=== PATIENT | female | born 1960 | race African-American/Black ===

== ENCOUNTER 2019-05-21 12:55 | Inpatient (IN) | payer SELFPAY ==
[2019-05-21] VITALS (17 sets, daily range): BP systolic 70–164; BP diastolic 48–108; PULSE 71–97; RESP 22–32; TEMP 34.9–36.8; O2SAT 80–100; BMI 28.0
--- NOTE | ~2019-05-21 | XR_ITS ---
EXAMINATION: XR tibia fibula RT 2V DATE: 05/21/2019 15:48 INDICATION: Right lower leg wounds. TECHNIQUE: 2 views of right tibia and fibula on 4 radiographs were obtained. COMPARISON: None. FINDINGS: Bone alignment is normal. No fracture. There is periosteal reaction of fibular diaphysis an d distal tibial diaphysis and metaphysis. There are erosions of medial malleolus. There is mild trico mpartmental osteoarthritis of the knee. No knee joint effusion. The skin of the lower leg and foot de monstrates an undulating surface. IMPRESSION: 1. Erosions of medial malleolus, consistent with osteomyelitis. 2. Periosteal reaction of fibular diaphysis and distal tibial diaphysis and metaphysis, most likely s econdary to venous stasis. Reviewed, dictated and finalized at location A. IMPRESSION: 1. Erosions of medial malleolus, consistent with osteomyelitis. 2. Periosteal reaction of fibular diaphysis and distal tibial diaphysis and met aphysis, most likely secondary to venous stasis.
--- NOTE | ~2019-05-21 | XR_ITS ---
EXAMINATION: XR chest ET placement DATE: 05/21/2019 15:48 INDICATION: Intubation. TECHNIQUE: A single frontal view of the chest was obtained. COMPARISON: Chest single view 09/25/2017 FINDINGS: There is mild atelectasis at the lung bases. No pleural effusion or pneumothorax. The heart size is normal. The endotracheal tube tip is 5.1 cm above the anthony. IMPRESSION: 1. Mild atelectasis at the lung bases. Reviewed, dictated and finalized at location A.
--- NOTE | ~2019-05-21 | XR_ITS ---
EXAMINATION: XR abdomen NG/feed tube insert DATE: 05/21/2019 18:20 INDICATION: Orogastric tube placement. TECHNIQUE: A semiupright view of the abdomen was obtained. COMPARISON: None. FINDINGS: The lower abdomen is excluded. There are no dilated loops of bowel. A central venous cathet er tip overlies the inferior vena cava. The nasogastric tube tip is in the distal stomach. IMPRESSION: 1. Nasogastric tube tip in the distal stomach. Reviewed, dictated and finalized at location A.
--- NOTE | ~2019-05-21 | US_ITS ---
EXAMINATION: US renal BI DATE: 05/22/2019 10:13 INDICATION: Renal failure TECHNIQUE: Multiple ultrasound grayscale images of the kidneys were obtained. COMPARISON: None. FINDINGS: The right kidney measures 9.3 x 3.6 x 5.3 cm. The left kidney measures 6.3 x 4.0 x 4.5 cm. Which may be underestimated due to poor visualization with rib shadowing. The kidneys demonstrate normal echoge nicity. There is no hydronephrosis in either kidney. No stones identified. The bladder is unremarkab le. Perihepatic ascites. IMPRESSION: 1. No hydronephrosis. 2. Left kidney appears small but with normal cortical thickness and this may be artifactual due to ri b shadowing limiting visualization. 3. Perihepatic ascites. Reviewed, dictated and finalized at location A. IMPRESSION: 1. No hydronephrosis. 2. Left kidney appears small but with normal cortical thickness and this may be artifactual due to rib shadowing limiting visualization. 3. Perihepatic ascites.
--- NOTE | ~2019-05-21 | XR_ITS ---
EXAMINATION: XR chest 1V portable DATE: 05/22/2019 05:40 INDICATION: Intubated TECHNIQUE: frontal view of the chest was obtained. COMPARISON: Chest radiograph dated 05/21/2019 FINDINGS: Endotracheal tube tip 5.1 cm above the anthony. Nasogastric tube extends below the left hemidiaphragm with distal tip collimated off the study. Lung volumes are decreased. Mild opacities at the bilateral lung bases and favor atelectasis over uln ar edema or pneumonia. The cardiomediastinal silhouette is normal. IMPRESSION: 1. Decreased lung volumes with persistent atelectasis at the lung bases. Reviewed, dictated and finalized at location A.
--- NOTE | ~2019-05-21 | XR_ITS ---
EXAMINATION: XR tibia fibula LT 2V DATE: 05/21/2019 15:48 INDICATION: Left lower leg wound. TECHNIQUE: 2 views of left tibia and fibula on 4 radiographs were obtained. COMPARISON: None. FINDINGS: Bone alignment is normal. There is a fracture deformity of medial malleolus. There is perio steal reaction of fibular diaphysis and proximal and distal tibial metaphyses. There is mild tricompa rtmental osteoarthritis of left knee. No knee joint effusion. The skin demonstrates a diffusely undul ating surface. IMPRESSION: 1. Periosteal reaction of fibular diaphysis and proximal and distal tibial metaphyses, most likely se condary to venous stasis. Osteomyelitis cannot be excluded. 2. Age-indeterminant fracture deformity of medial malleolus. Reviewed, dictated and finalized at location A. IMPRESSION: 1. Periosteal reaction of fibular diaphysis and proximal and distal tibial meta physes, most likely secondary to venous stasis. Osteomyelitis cannot be exclude d. 2. Age-indeterminant fracture deformity of medial malleolus.
--- NOTE | ~2019-05-21 | XR_ITS ---
EXAMINATION: XR chest ET placement DATE: 05/23/2019 08:46 INDICATION: Endotracheal tube position TECHNIQUE: frontal view of the chest was obtained. COMPARISON: Chest radiograph dated 05/23/2019 FINDINGS: Endotracheal tube tip 4.5 cm above the anthony. Persistent hazy airspace opacities in the right mid to lower and left lower lung zones with blunting at the costophrenic angles. No pulmonary edema or pneu mothorax. The cardiomediastinal silhouette is normal. Visualized bones and soft tissues are unremarka ble. IMPRESSION: 1. Endotracheal tube unchanged with tip 4.5 cm above the anthony. 2. Small bilateral pleural effusions, right greater than left, with mild basilar atelectasis. Reviewed, dictated and finalized at location A. IMPRESSION: 1. Endotracheal tube unchanged with tip 4.5 cm above the anthony. 2. Small bilateral pleural effusions, right greater than left, with mild basila r atelectasis.
--- NOTE | ~2019-05-21 | XR_ITS ---
EXAMINATION: XR chest 1V portable DATE: 05/23/2019 05:22 INDICATION: Acute respiratory failure TECHNIQUE: frontal view of the chest was obtained. COMPARISON: Chest radiograph dated 05/22/2019 FINDINGS: Endotracheal tube tip 4.6 cm above the anthony. New hazy opacities at the lung bases with blunting at the costophrenic angles consistent with small bilateral pleural effusions and associated atelectasis. No pulmonary edema or pneumothorax. The cardiomediastinal silhouette is normal. Visualized bones and soft tissues are unremarkable. IMPRESSION: 1. Small bilateral pleural effusions with mild bibasilar atelectasis. Reviewed, dictated and finalized at location A.
--- NOTE | 2019-05-21 12:55 | ED.AMS ---
HPI - Altered Mental Status General Chief Complaint: Altered Mental Status Stated Complaint: . Time Seen by Provider: 05/21/19 12:56 Source: EMS Mode of arrival: EMS Limitations: altered mental status History of Present Illness HPI narrative: The pt is a 58 y/o female who presents to the ED, via EMS, c/o decreased responsiveness onset couple of days ago. Per EMS, pt has become less and less responsive, and her chronic BLE swelling has worsened. EMS states that they were unable to arouse the patient, and she had saturation in the 40s. Pt was placed on CPAP as a result. Blood sugar was 70 on fingerstick by EMS. The HPI is limited due to the pt's AMS. Spoke with patient's in the waiting room after initial evaluation. Patient has chronic bilateral lower extremity wounds that have been present for years. Patient has previously been admitted to the hospital for these wounds. states patient is not diabetic. He is unable to articulate her past medical history. He states she fell this morning and cannot relate to me how long she has been ill. He does report that she had gotten up to the bathroom this morning. MD complaint: decreased responsiveness Onset (ago): day(s) (A couple) Consistency of symptoms: getting Worse Associated symptoms: other (Unobtainable) Treatments prior to arrival: other (CPAP) Related Data Allergies Allergy/AdvReac Type Severity Reaction Status Date / Time No Known Allergies Allergy Unverified 09/25/17 21:06 Review of Systems Review of Systems: ROS unobtainable: Yes unobtainable due to mental status [facility] Surgical History Surgical History (Updated 05/21/19 @ 13:14 by Alfredo Leon) Surgical history unknown Family History Family History (Updated 11/05/17 @ 13:22 by DOCTOR UNKNOWN) Mother Patient's mother is in good health Father Patient's father is in good health Social History Social History (Updated 05/21/19 @ 13:15 by Alfredo Leon) Living arrangements: with family Comments PMHx is limited due to the pt's AMS. No PMHx found on review of old records either. Exam Const: General: confusion and ill appearing acutely Limitations: altered mental status HENMT: Head: other (CPAP present) Mouth: Yes dry mucous membranes Teeth and gingiva: poor dentition Eyes: Pupils: Fixed pupils bilaterally and Pupils not reactive bilaterally Resp: Effort & Inspection: tachypneic Auscultation: clear to auscultation bilaterally Cardio: Rate: regular rate Rhythm: regular rhythm GI: GI Palp: Yes Soft to palpation and No Tenderness to palpation present (GI) Auscultation: normal bowel sounds Skin: Wounds: wounds noted ulceration right lower leg size (Extensive, multiple), drainage and malodorous, ulceration left lower leg size (Extensive, multiple), drainage and malodorous Neuro: General: moves all extremities, confusion and other (Poorly responsive to any stimuli) Extrem: General: other (Bilateral lower leg swelling) Course Course Emergency Course: Patient presents to the emergency department with altered mental status and infected bilateral lower extremity ulcers with foul smelling discharge present. Blood gas shows patient is not hypoxic, but has severe metabolic acidosis. Advised patient's based on findings of such severe acidosis that she likely has severe septic shock from her lower extremity ulcers. This is confirmed on test results after further evaluation was able to be obtained after placement of central line and patient intubation. Nursing staff were not able to draw blood, thus blood work was obtained after placement of central line. Patient aggressively resuscitated with multiple liters of IV fluids. Hypoglycemia treated with amp of D50 and placement on a D5 LR drip. Patient given 2 A of bicarb both for treatment of her hyperkalemia as well as severe acidemia. Patient will be placed on bicarb drip as well. Patient cultured and started on broad-spectrum
[2019-05-21 13:22] LABS: Base Excess ABG -31.4 mEq/l (+/-2.0); Carboxyhemoglobin 0.3 % THb (0-2.0); Fractional Inspired Oxygen 100 %; HCO3 ABG 4.4 mEq/l (22.0-26.0); Methemoglobin ABG 0.5 %THb (0-1.5); Oxygen Content ABG 17.8 %vol (16.0-22.0); Oxygen Saturation ABG 98.9 % (95.0-100.0); Oxyhemoglobin 97.8 % THb (90.0-100.0); PCO2 ABG 35.4 mmHg (35.0-45.0); PO2 ABG 285.6 mmHg (80.0-100.0); PO2 FiO2 Ratio Arterial Blood 2.86 %; Reduced Hemoglobin 1.4 %THb (0-5.0); Total Hemoglobin 12.4 g/dL (12.0-18.0)
[2019-05-21 13:23] LABS: pH ABG 6.708 (7.350-7.450)
[2019-05-21 13:24] LABS: Device OTHER DEVICE; Site Drawn RIGHT BRACHIAL
[2019-05-21] MEDS: RAPID SEQUENCE INTUBATION KIT 1 EACH (14:29)
--- NOTE | 2019-05-21 14:40 | PC.NURSE ---
Addendum entered by Rosalie Waterman RN 05/21/19 20:03: GREGORY NARANJO Original Note: AT 1440 LEVOPHED INITIATED AT 10MCG/MIN
[2019-05-21 14:52] LABS: Hematocrit 30.4 % (37.0-47.0); Hemoglobin 8.5 g/dL (12.0-15.0); Mean Corpuscular Hemoglobin 26.6 pg (26-34); Mean Corpuscular Volume 95.3 fl (80-100); Mean Platelet Volume 9.4 fl (7.4-10.4); Platelet Count Result 428 k/mm3 (150-375); Red Blood Count 3.19 M/mm3 (4.2-5.4); Red Cell Distribution Width 14.1 % (11.5-14.5); White Blood Count 31.1 K/mm3 (4.5-10.0)
[2019-05-21 15:06] LABS: Prothrombin Time 22.3 Seconds (11.1-14.7)
[2019-05-21 15:07] LABS: Band Neutrophils Percent 24 % (0-6); Eosinophils Absolute Manual 0.31 K/mm3 (0.02-0.5); Eosinophils Percent Manual 1 % (0-4); Lymphocytes Absolute Manual 11.81 K/mm3 (1.1-4.5); Metamyelocytes Percent 1 %; Monocytes Absolute Manual 1.24 K/mm3 (0.1-0.90); Monocytes Percent Manual 4 % (3-9); Neutrophils Absolute Manual 17.41 K/mm3 (1.7-7.2); Neutrophils Percent Manual 32 % (46-73); Nucleated Red Blood Cells 1 %; Total Cells Counted 100
[2019-05-21 15:08] LABS: Platelet Estimate Increased (Adequate)
[2019-05-21 15:09] LABS: Anisocytosis 1+ (NORMAL); Hypochromasia 1+ (NORMAL)
[2019-05-21 15:15] LABS: Alanine Aminotransferase 152 U/L (4-35); Albumin Level 2.6 g/dL (3.5-5.1); Alkaline Phosphatase 223 U/L (38-126); Aspartate Amino Transferase 420 U/L (14-36); Bilirubin,Total 0.7 mg/dL (0.2-1.3); Blood Urea Nitrogen 61 mg/dL (7-17); Calcium 8.2 mg/dL (8.4-10.2); Carbon Dioxide 7 mmol/L (22-30); Chloride 100 mmol/L (98-107); Creatine Kinase 520 U/L (30-135); Estimated Glomerular Filt Rate 10; Glucose < 30 mg/dL (65-105); Magnesium 3.8 mg/dL (1.6-2.3); Potassium 7.1 mmol/L (3.4-5.0); Sodium 131 mmol/L (137-145)
[2019-05-21 15:19] LABS: CRP 24.7 mg/dL (<1.0); NT Pro B Type Natriuretic Pept 13100 PG/ML (5-100); Troponin I 0.081 ng/mL (0.000-0.034)
[2019-05-21] MEDS: DEXTROSE 50% 25 GM/50 ML SYRINGE IV PUSH ×2 (15:20→17:25)
[2019-05-21 15:27] LABS: Lactic Acid Reflex 12.8 mmol/L (0.7-2.1)
[2019-05-21] MEDS: SODIUM CHLORIDE 0.9% IV 1,000 ML 999 ML ×2 (15:30→16:00)
--- NOTE | 2019-05-21 15:30 | PC.NURSE ---
AT 1530 2MG MIDAZOLAM AND 50MCG FENTANYL GIVEN IVP PER GREGORY NARANJO
[2019-05-21] MEDS: SODIUM BICARBONATE 8.4% 50 MEQ/50 ML VIAL IV PUSH ×2 (15:40)
--- NOTE | 2019-05-21 15:45 | PC.NURSE ---
AT 1545 LEVOPHED INCREASED TO 20MCG/MIN
[2019-05-21] MEDS: PROPOFOL IV EMULSION 100 ML 1.9 MG IV CONT (15:54)
[2019-05-21] MEDS: SODIUM BICARBONATE 8.4% 150 MEQ in WATER, STERILE FOR INJECTION 950 ML 50 MEQ IV CONT (16:12)
[2019-05-21] MEDS: INSULIN HUMAN REGULAR (*BKC) 100 UNITS/ML 10 UNITS IV PUSH (16:17)
[2019-05-21] MEDS: CALCIUM CHLORIDE 1,000 MG/10 ML SYRINGE 1000 MG IV PUSH (16:21)
[2019-05-21] MEDS: NOREPINEPHRINE 8 MG/D5W 250 ML 8 MG/250 ML BAG 37.5 MG IV CONT (17:00)
[2019-05-21 17:50] LABS: Reflex Lactic Acid Yes or No Add Lactic
[2019-05-21] MEDS: SODIUM CHLORIDE 0.9% IV 1,000 ML 999 ML IV CONT (18:00)
[2019-05-21] MEDS: DEXTROSE 5%/LACTATED RINGERS 1,000 ML 200 ML IV CONT ×2 (18:00→22:46)
[2019-05-21 18:25] LABS: Glucose Point of Care 125 (65-105)
[2019-05-21 18:25] LABS: Glucose Point of Care 33 (65-105)
[2019-05-21 18:25] LABS: Glucose Point of Care 89 (65-105)
[2019-05-21 18:33] LABS: Add Urine Microscopic? YES; Amorphous Sediment Urine Few; Appearance Urine Cloudy (Clear); Bacteria Urine Trace /hpf; Bilirubin Urine Negative (Negative); Blood Urine 3+ (Negative); Color Urine Yellow (Yellow); Glucose Urine UA 1+ mg/dL (Negative); Ketones Urine Negative (Negative); Leukocyte Esterase Ur Negative LEU/UL (Negative); Mucus Urine Rare /lpf; Nitrate Urine Negative (Negative); Protein Urine 2+ mg/dL (Negative); Specific Grav Ur 1.012 (1.001-1.035); Squamous Epithelial Cell Urine Many /hpf (Few); Urobilinogen Urine Negative mg/dL (<2.0); WBC Urine 0-3 /hpf
[2019-05-21 18:36] LABS: Troponin I 0.117 ng/mL (0.000-0.034)
[2019-05-21] MEDS: VASOPRESSIN INJ 100 UNITS in DEXTROSE 5% 95 ML IV CONT (18:40)
[2019-05-21 18:50] LABS: Lactic Acid 8.5 mmol/L (0.7-2.1)
--- NOTE | 2019-05-21 18:57 | PM.IMHP ---
H&P: HPI History of Present Illness Chief complaint: Septic shock/blateral lower extremity ulcers/hyper Narrative: Wanda Haines is a 58 year old female who has a long history of having chronic lower extremity ulcers. The last time the patient was here was September 25, 2017 she was here with septic shock due to her lower extremity chronic wounds. At that time the patient was transferred to [facility]. For necrotizing fasciitis at that time. Patient currently has foul-smelling drainage from both of her legs. She has her legs wrapped and she has yellow drainage from those wounds. I was not able to see the extent of her wounds comes because they are wrapped at this time. Her white count is 31.3. She was started on vancomycin and Zosyn. A central line was placed to the right femoral area in the emergency room. The patient was started on Levophed and vasopressin. Patient's pH was 6.708 and her PO2 was 285.6. Patient was intubated in the emergency room and placed on a ventilator. Her blood sugar was less than 30. Lactic was 8.5. Troponin 0.117. CRP 24.7. BNP 13,100. Patient's potassium was 7.1. Patient was given and sodium bicarb, calcium gluconate, IV insulin x1. The apparel stock checker was notified and agreed to allow the patient to come into ICU. She has severe sepsis. Date of service 05/21/2019 Review of Systems Review of Systems: ROS unobtainable: Yes unobtainable due to endotracheal tube and unobtainable due to medical condition Constitutional: Constitutional: Reports as per HPI and Reports no additional constitutional complaints Eyes: Eyes: Reports as per HPI and Reports no additional eye complaints ENT: Reports system reviewed and no additional complaints, except as documented and Reports Normal hearing present Cardiovascular: Cardiovascular: Reports no additional cardiovascular complaints Respiratory: Respiratory: Reports no additional respiratory complaints and Reports no additional respiratory complaints Gastrointestinal: Gastrointestinal: Reports as per HPI and Reports no additional gastrointestinal complaints Musculoskeletal: Musculoskeletal: Reports no additional musculoskeletal complaints Integumentary/Breasts: Skin/Breast: Reports system reviewed and no additional complaints, except as docu and Reports as per HPI Neurologic: Reports system reviewed and no additional complaints, except as documented, Reports as per HPI and Reports Normal hearing present Psychiatric: Psychiatric: Reports no additional psychiatric complaints and Reports as per HPI Endocrine: Endocrine: Reports no additional endocrine complaints Hematologic/Lymphatic: Hematologic/Lymphatic: Reports no additional hematologic/lymphatic complaints Allergic/Immunologic: Allergic/Immunologic: Reports no additional allergic/immunologic complaints [facility] Past Medical History Medical History Chronic ulcer of leg Surgical History Surgical History Surgical history unknown Family History Family History Mother Patient's mother is in good health Father Patient's father is in good health Social History Social History (Updated 05/21/19 @ 13:15 by Alfredo Leon) Living arrangements: with family Meds Home Medications and Allergies Home Medications Medication Instructions Recorded Confirmed Type Unable to Obtain Home Medications 05/21/19 05/21/19 History Allergies Allergy/AdvReac Type Severity Reaction Status Date / Time No Known Allergies Allergy Unverified 09/25/17 21:06 Vital Signs Vital Signs - 24 hr 05/21/19 12:52 05/21/19 13:25 05/21/19 13:37 Temperature 36.8 C Pulse Rate 71 93 97 Respiratory Rate 32 H 26 H 30 H Blood Pressure 125/60 103/87 77/50 L Pulse Oximetry 80 L 89 L 90 05/21/19 14:30 05/21/19 14:45 05/21/19 15:00 Temper
--- NOTE | 2019-05-21 20:25 | ADMGEN ---
This patient, Wanda Haines, was admitted to Intensive Care Unit-2. Patient unable to be oriented to hospital policies and general routines due to sedation. Patient arrived intubated and sedated on Propofol gtt, Levophed gtt, rodriguez and bilateral lower legs dressings. no family to bedside per current protocol. Bedside report received. Point of care blood sugar taken, OG inserted, neurological assessment completed. Patient able to follow simple commands. ICU MD notified of blood glucose level and current fluids running. Bilateral lower leg dressings changed at change of shift with upcoming [facility]. Wound photos done.
[2019-05-21 21:00] LABS: Alveolar/Arterial O2 Gradient 48.5 mmHg; Carboxyhemoglobin 0.2 % THb (0-2.0); Fractional Inspired Oxygen 40 %; HCO3 ABG 9.6 mEq/l (22.0-26.0); Methemoglobin ABG 0.4 %THb (0-1.5); Oxygen Content ABG 14.1 %vol (16.0-22.0); Oxygen Saturation ABG 99.4 % (95.0-100.0); Oxyhemoglobin 97.8 % THb (90.0-100.0); PO2 ABG 213.9 mmHg (80.0-100.0); PO2 FiO2 Ratio Arterial Blood 5.35 %; Reduced Hemoglobin 1.6 %THb (0-5.0); Total Hemoglobin 9.9 g/dL (12.0-18.0); pH ABG 7.302 (7.350-7.450)
[2019-05-21 21:02] LABS: Device VENTILATOR; Modified Allen's Test Pass; PCO2 ABG 19.8 mmHg (35.0-45.0); Site Drawn LEFT RADIAL
[2019-05-21 21:03] LABS: Arterial Blood Gas PEEP 5 cmH2O; Arterial Blood Gas Tidal Volume 400 ml; Arterial Blood Gas Vent Mode CMV; Arterial Blood Gas Ventilator rate 14 /MIN
[2019-05-21 21:18] LABS: Glucose Point of Care 124 (65-105)
[2019-05-21 21:18] LABS: Glucose Point of Care 105 (65-105)
[2019-05-21 21:26] LABS: Albumin Level 1.6 g/dL (3.5-5.1); Alkaline Phosphatase 161 U/L (38-126); Bilirubin,Total 0.7 mg/dL (0.2-1.3); Blood Urea Nitrogen 56 mg/dL (7-17); Calcium 6.5 mg/dL (8.4-10.2); Carbon Dioxide 13 mmol/L (22-30); Chloride 104 mmol/L (98-107); Estimated CRCL calculation 10 ml/min; Estimated Glomerular Filt Rate 14; Glucose 176 mg/dL (65-105); Potassium 4.1 mmol/L (3.4-5.0); Sodium 129 mmol/L (137-145)
[2019-05-21 21:28] LABS: Lactic Acid Reflex 6.7 mmol/L (0.7-2.1)
[2019-05-21 21:32] LABS: Alanine Aminotransferase 1163 U/L (4-35)
[2019-05-21 21:37] LABS: Troponin I 0.185 ng/mL (0.000-0.034)
[2019-05-21 21:50] LABS: Aspartate Amino Transferase 5045 U/L (14-36)
[2019-05-21 22:19] LABS: Glucose Point of Care 113 (65-105)
[2019-05-21] MEDS: NOREPINEPHRINE 8 MG/D5W 250 ML 8 MG/250 ML BAG 56.3 MG IV CONT (22:45)
[2019-05-21 23:27] LABS: Glucose Point of Care 123 (65-105)
[2019-05-22] VITALS (24 sets, daily range): BP systolic 95–143; BP diastolic 54–89; PULSE 92–140; RESP 20–30; TEMP 36.1–37.2; O2SAT 91–100
[2019-05-22 01:48] LABS: Glucose Point of Care 130 (65-105)
[2019-05-22] MEDS: NOREPINEPHRINE 8 MG/D5W 250 ML 8 MG/250 ML BAG 56.3 MG IV CONT ×2 (03:40→07:47)
[2019-05-22] MEDS: SODIUM BICARBONATE 8.4% 150 MEQ in WATER, STERILE FOR INJECTION 950 ML 100 MEQ IV CONT (03:40)
[2019-05-22 03:46] LABS: Glucose Point of Care 99 (65-105)
[2019-05-22] MEDS: DEXTROSE 5%/LACTATED RINGERS 1,000 ML 200 ML IV CONT (04:33)
[2019-05-22 05:04] LABS: Glucose Point of Care 80 (65-105)
[2019-05-22 05:26] LABS: Alveolar/Arterial O2 Gradient 147.3 mmHg; Base Excess ABG -7.2 mEq/l (+/-2.0); Fractional Inspired Oxygen 40 %; HCO3 ABG 14.4 mEq/l (22.0-26.0); Oxygen Content ABG 15.5 %vol (16.0-22.0); Oxygen Saturation ABG 98.6 % (95.0-100.0); PO2 ABG 115.2 mmHg (80.0-100.0); PO2 FiO2 Ratio Arterial Blood 2.88 %; Total Hemoglobin 11.2 g/dL (12.0-18.0); pH ABG 7.481 (7.350-7.450)
[2019-05-22 05:29] LABS: Device VENTILATOR; Modified Allen's Test Pass; PCO2 ABG 19.7 mmHg (35.0-45.0); Site Drawn LEFT FEMORAL
[2019-05-22 05:30] LABS: Arterial Blood Gas PEEP 5 cmH2O; Arterial Blood Gas Vent Mode CMV; Arterial Blood Gas Ventilator rate 14 /MIN
[2019-05-22 05:31] LABS: Arterial Blood Gas Tidal Volume 400 ml
[2019-05-22 06:10] LABS: Hematocrit 31.1 % (37.0-47.0); Hemoglobin 10.3 g/dL (12.0-15.0); Mean Corpuscular HGB Conc 33.1 g/dl (32-36); Mean Corpuscular Volume 81.4 fl (80-100); Mean Platelet Volume 9.1 fl (7.4-10.4); Platelet Count Result 282 k/mm3 (150-375); Red Blood Count 3.82 M/mm3 (4.2-5.4); Red Cell Distribution Width 13.7 % (11.5-14.5); White Blood Count 30.2 K/mm3 (4.5-10.0)
[2019-05-22 06:35] LABS: Lactic Acid 4.4 mmol/L (0.7-2.1)
[2019-05-22 06:36] LABS: Band Neutrophils Percent 13 % (0-6); Lymphocytes Absolute Manual 2.11 K/mm3 (1.1-4.5); Metamyelocytes Percent 1 %; Monocytes Absolute Manual 2.41 K/mm3 (0.1-0.90); Monocytes Percent Manual 8 % (3-9); Neutrophils Absolute Manual 25.36 K/mm3 (1.7-7.2); Neutrophils Percent Manual 71 % (46-73); Total Cells Counted 100
[2019-05-22 06:36] LABS: Albumin Level 1.8 g/dL (3.5-5.1); Alkaline Phosphatase 228 U/L (38-126); Bilirubin,Total 1.1 mg/dL (0.2-1.3); Blood Urea Nitrogen 57 mg/dL (7-17); Calcium 5.8 mg/dL (8.4-10.2); Carbon Dioxide 16 mmol/L (22-30); Chloride 96 mmol/L (98-107); Estimated CRCL calculation 13 ml/min; Estimated Glomerular Filt Rate 15; Glucose 129 mg/dL (65-105); Magnesium 1.9 mg/dL (1.6-2.3); Phosphorus 6.1 mg/dL (2.5-4.5); Potassium 4.4 mmol/L (3.4-5.0); Sodium 126 mmol/L (137-145)
[2019-05-22 06:39] LABS: Anisocytosis 1+ (NORMAL); Burr Cells 1+ (NORMAL); Platelet Estimate Adequate (Adequate)
[2019-05-22 07:09] LABS: Alanine Aminotransferase 1570 U/L (4-35)
[2019-05-22 07:32] LABS: Aspartate Amino Transferase 5169 U/L (14-36)
[2019-05-22] MEDS: PANTOPRAZOLE SODIUM IV 40 MG VIAL IV PUSH (08:01)
[2019-05-22] MEDS: HYDROCORTISONE SODIUM SUCCINATE 100 MG/2 ML VIAL IV PUSH ×3 (08:01→22:10)
--- NOTE | 2019-05-22 08:03 | ECG_ITS ---
Measurements Intervals [place] Rate: 105 P: -27 OR: 132 QRS: 36 QRSD: 71 T: 70 QT: 364 QTc: 482 Interpretive Statements SINUS OR ECTOPIC ATRIAL TACHYCARDIA RSR' IN V1 OR V2, CONSIDER RIGHT VENTRICULAR HYPERTROPHY OR RIGHT VCD BORDERLINE ST-T WAVE ABNORMALITY- LATERAL LEADS BASELINE WANDER- I, III, V1-V6 ABNORMAL ECG Electronically Signed On 05-22-2019 8:30:14 CDT by Juan Benites D.O.
[2019-05-22] MEDS: SODIUM BICARBONATE 8.4% 150 MEQ in DEXTROSE 5% 1,000 ML 950 ML 100 MEQ IV CONT (08:08)
[2019-05-22] MEDS: CALCIUM GLUC 2,000 MG/NS 100ML 2,000 MG/100 ML BAG 100 MG IVPB (08:26)
[2019-05-22] MEDS: DEXTROSE 50% 25 GM/50 ML SYRINGE IV PUSH (08:45)
[2019-05-22 08:52] LABS: Glucose Point of Care 47 (65-105)
--- NOTE | 2019-05-22 09:03 | WPDCNINT ---
Assessment and Plan Assessment and plan (1) Septic shock: Code(s): A41.9 - Sepsis, unspecified organism; R65.21 - Severe sepsis with septic shock Status: Acute Assessment and Plan: septic shock most likely related to infected chronic wound, possible bacteremia - patient on vasopressin and Levophed, will target mean arterial pressures > 70 mmHg for adequate end organ perfusion - will start stress dose steroids - continue vancomycin and Zosyn - blood and wound cultures have been obtained and pending - lactic acid trending down - patient with severe metabolic acidosis, on bicarb infusion - I will place an arterial line (2) Encephalopathy: Code(s): G93.40 - Encephalopathy, unspecified Status: Acute Assessment and Plan: multifactorial, toxic metabolic encephalopathy related to severe metabolic acidosis due to septic shock, acute kidney injury, shock liver - ammonia levels within normal limits - will obtain CT scan of the head when the patient is a little more stable - continue treating underlying causes (3) Acute respiratory failure: Code(s): J96.00 - Acute respiratory failure, unspecified whether with hypoxia or hypercapnia Status: Acute Assessment and Plan: most likely related to metabolic acidosis, initial pH was 6.7 - patient on full mechanical ventilatory support, 40% FiO2 - chest x-ray and ABGs reviewed, will adjust tidal volumes to protect patient from volu-trauma - will add bronchodilators - continue antibiotics as above (4) Acute renal failure: Code(s): N17.9 - Acute kidney failure, unspecified Status: Acute Assessment and Plan: acute kidney injury most likely related to septic shock - adequately fluid-resuscitated - continue maintenance IV fluids with sodium bicarb in D5 - will maintain mean arterial pressure > 70 mmHg for adequate renal perfusion - awake nephrotoxic medications - creatinine trending down, adequate urine output. Will continue to monitor electrolytes, renal function and urine output (5) Hyperkalemia: Code(s): E87.5 - Hyperkalemia Status: Acute Assessment and Plan: Resolved, hyperkalemia could be related to acute kidney injury, severe metabolic acidosis (6) Hypoglycemia: Code(s): E16.2 - Hypoglycemia, unspecified Status: Acute Assessment and Plan: likely related to severe septic shock, metabolic acidosis - Accu-Cheks with hypoglycemia protocol (7) Chronic ulcer of leg: Code(s): L97.909 - Non-pressure chronic ulcer of unspecified part of unspecified lower leg with unspecified severity Status: Chronic Assessment and Plan: patient has a history of chronic leg ulcers. According the records and her significant other she has been having these ulcers for the last 3-4 years - was in [facility] in September 2017 possible necrotizing fasciitis, will obtain medical records from [facility] (8) Elevated troponin: Code(s): R79.89 - Other specified abnormal findings of blood chemistry Status: Acute Assessment and Plan: elevated troponin likely related to septic shock and ischemic demand. Likely type 2 infarct - no ST-T changes on the EKG (9) Elevated LFTs: Code(s): R79.89 - Other specified abnormal findings of blood chemistry Status: Acute Assessment and Plan: likely related to shock liver, will maintain higher mean arterial pressures for adequate end organ perfusion (10) DVT prophylaxis: Code(s): Z29.9 - Encounter for prophylactic measures, unspecified Status: Acute Assessment and Plan: DVT prophylaxis: Lovenox. Stress ulcer prophylaxis: Protonix Additional Plan will update family on the phone code status: Full code Critical care time spent: 49 minutes Due to a high probability of clinically significant, life threatening deterioration, the patient required
[2019-05-22 09:38] LABS: Glucose Point of Care 60 (65-105)
[2019-05-22] MEDS: MIDAZOLAM HCL 50 MG in DEXTROSE 5% 90 ML IV CONT (10:03)
[2019-05-22] MEDS: DEXTROSE 10% 1,000 ML 30 ML IV CONT (10:10)
[2019-05-22] MEDS: ENOXAPARIN 30 MG/0.3 ML SYRINGE SUB-Q (10:34)
[2019-05-22 10:59] LABS: Glucose Point of Care 25 (65-105)
[2019-05-22 10:59] LABS: Glucose Point of Care < 20 (65-105)
[2019-05-22 11:03] LABS: Amphetamine Screen Urine Negative (Negative); Barbiturate Screen Urine Negative (Negative); Benzodiazepines Screen Urine Positive (Negative); Cannabinoid Screen Urine Negative (Negative); Cocaine Screen Urine Negative (Negative); Methadone Screen Urine Negative (Negative); Opiate Screen Urine Negative (Negative); Phencyclidine Screen Urine Negative (Negative)
[2019-05-22 11:04] LABS: Glucose Point of Care 108 (65-105)
[2019-05-22 12:10] LABS: Alveolar/Arterial O2 Gradient 157.2 mmHg; Base Excess ABG -7.2 mEq/l (+/-2.0); Fractional Inspired Oxygen 60 %; HCO3 ABG 14.9 mEq/l (22.0-26.0); Oxygen Content ABG 15.3 %vol (16.0-22.0); Oxygen Saturation ABG 99.6 % (95.0-100.0); Oxyhemoglobin 97.9 % THb (90.0-100.0); PO2 ABG 247.3 mmHg (80.0-100.0); PO2 FiO2 Ratio Arterial Blood 4.12 %; Total Hemoglobin 10.7 g/dL (12.0-18.0); pH ABG 7.464 (7.350-7.450)
[2019-05-22 12:12] LABS: Device VENTILATOR; PCO2 ABG 21.2 mmHg (35.0-45.0); Site Drawn ARTLINE
[2019-05-22 12:13] LABS: Arterial Blood Gas Minute Volume 0 LPM; Arterial Blood Gas PEEP 5 cmH2O; Arterial Blood Gas Pressure Support 0 cmH2O; Arterial Blood Gas Tidal Volume 330 ml; Arterial Blood Gas Vent Mode CMV; Arterial Blood Gas Ventilator rate 14 /MIN; Peak Inspiratory Pressure 0 cmH2O
[2019-05-22 12:35] LABS: Lactic Acid Reflex 4.4 mmol/L (0.7-2.1)
[2019-05-22] MEDS: SOD HYPOCHLORITE 1/4 STRENGTH 473 ML 1 APPLIC TOPICAL ×2 (13:21→20:06)
[2019-05-22] MEDS: NOREPINEPHRINE 8 MG/D5W 250 ML 8 MG/250 ML BAG 30 MG IV CONT (13:32)
--- NOTE | 2019-05-22 13:42 | PM.CNGS ---
Assessment and Plan Assessment and plan (1) Infected stasis ulcer of lower extremity: Code(s): I83.209 - Varicose veins of unspecified lower extremity with both ulcer of unspecified site and inflammation; L97.909 - Non-pressure chronic ulcer of unspecified part of unspecified lower leg with unspecified severity Status: Acute Assessment and Plan: Patient has severe superficial ulceration circumferentially on both lower extremities from just below knee to ankle region. There is also chronic scarring around this area from prior wounds. I do not palpate any deep fluctuance or signs of deeper infection at this time. Will initiate local wound care with Dakin's solution twice daily. This should help gain control of the odor and superficial infection. She may eventually need some further debridement but this can be assessed daily. I do not see any signs suggestive of necrotizing fasciitis or other deep infection such as osteomyelitis. Will reassess daily, and could consider CT if she eventually become stable enough for transfer out of the unit. (2) Septic shock: Code(s): A41.9 - Sepsis, unspecified organism; R65.21 - Severe sepsis with septic shock Status: Acute History of Present Illness Consult details Consult date: 05/22/19 Narrative: This is a 58-year-old woman who I am asked to see in the ICU for bilateral lower extremity wounds. She is currently intubated and unresponsive and in septic shock. History is obtained from the chart and from speaking with the nurse and Dr. Ivy. She presented to the emergency department yesterday unresponsive. She was found to be severely acidotic and in septic shock. She was intubated and central line was placed and then she was admitted to the ICU. She has bilateral lower extremity wounds and the source of infection appears to be likely from these. She apparently has chronic wounds and has had problems similar to this in the past. Duration of how long these wounds have been worsening is unable to be obtained. Since she was admitted, nursing has been performing wet-to-dry dressing changes. She is currently on Levophed and vasopressin. She is not waking up from sedation. Review of Systems Review of Systems: ROS unobtainable: Yes unobtainable due to endotracheal tube and unobtainable due to medical condition PMFSH Past Medical History Medical History Chronic ulcer of leg Surgical History Surgical History Surgical history unknown Family History Family History Mother Patient's mother is in good health Father Patient's father is in good health Social History Social History Smoking status: Unknown if ever smoked Alcohol intake: unknown Substance use: unknown Living arrangements: with family Gender identity (if verbalized by the patient): Female Spiritual care concerns: No Agree to blood products: Yes Meds Home Medications and Allergies Home Medications Medication Instructions Recorded Confirmed Type Unable to Obtain Home Medications 05/21/19 05/21/19 History Allergies Allergy/AdvReac Type Severity Reaction Status Date / Time No Known Allergies Allergy Unverified 09/25/17 21:06 Vital Signs Vital Signs - 24 hr 05/21/19 14:30 05/21/19 14:45 05/21/19 15:00 Temperature Pulse Rate 90 91 92 Respiratory Rate 26 H 22 H Blood Pressure 70/48 L 82/49 L Pulse Oximetry 98 91 05/21/19 15:40 05/21/19 16:00 05/21/19 16:30 Temperature Pulse Rate 93 97 96 Respiratory Rate 22 H 22 H 24 H Blood Pressure 88/50 L 97/56 L 96/57 L Pulse Oximetry 89 L 92 99 05/21/19 16:45 05/21/19 17:00 05/21/19 18:00 Temperature 34.9 C L Pulse Rate 94 95 88 Respiratory Rate 24 H 30 H 28 H Blood Pressure 97/54 L
[2019-05-22] MEDS: LEVALBUTEROL NEB 1.25 MG/3 ML 0.63 MG INHALATION ×2 (14:10→20:01)
[2019-05-22] MEDS: IPRATROPIUM BR 0.02% INH SOLN 0.5 MG/2.5 ML VIAL INHALATION ×2 (14:10→20:01)
[2019-05-22 14:38] LABS: Glucose Point of Care 106 (65-105)
--- NOTE | 2019-05-22 14:45 | WPDPROCEDUR ---
Procedures Arterial Line: Arterial Line Date: 05/22/19 Arterial Line Time: 09:32 Discussed with the patient/family/POA, the non-emergent placement of an arterial catheter, including its clinical necessity/indication and associated potential risks and complications: Yes Patient/family/POA and/or understand(s) and acknowledge(s) the need to proceed with the arterial catheter insertion as an important element of the patient's clinical management: Yes Perfomed Emergently - Given emergent patient conditions, temporal constraints may have precluded informed consent: No A pre-procedural Time-Out was completed immediately before starting the procedure and confirmed: Patient Identification, Site, Procedure, Patient Position and the Availability of Requisite Equipment: Yes Patient Position: supine Promotion Producer Prep: sterile gown, sterile gloves, mask and hat Site: left and femoral Site Prep: chlorhexidine and sterile drape Skin Anesthesia: 1% lidocaine Technique used: ultrasound-guided Size (Gauge): 18 Length: 12 cm Closure/Dressing: suture, antimicrobial disc and tegaderm Patient tolerated procedure: well Complications: none
--- NOTE | 2019-05-22 14:55 | PM.CNNEP ---
Assessment and Plan Assessment and plan (1) Acute renal failure: Code(s): N17.9 - Acute kidney failure, unspecified Status: Acute (2) Hyperkalemia: Code(s): E87.5 - Hyperkalemia Status: Acute (3) Septic shock: Code(s): A41.9 - Sepsis, unspecified organism; R65.21 - Severe sepsis with septic shock Status: Acute (4) Acute respiratory failure: Code(s): J96.00 - Acute respiratory failure, unspecified whether with hypoxia or hypercapnia Status: Acute (5) Chronic ulcer of leg: Code(s): L97.909 - Non-pressure chronic ulcer of unspecified part of unspecified lower leg with unspecified severity Status: Chronic Assessment and Plan: . Additional Plan Wanda is suffered acute insult to her kidneys as evidenced by her admission labs. Her repeat labs this morning show improvement in her kidney function and relative stability in her electrolytes following medical management for hyperkalemia. She is also making urine which is a favorable prognostic sign as well. Given all evidence date, her acute kidney injury is likely secondary to acute tubular necrosis due to hemodynamic instability and presumed septic shock. she may have had some other issues playing a role with regard to pre renal azotemia or medications but is difficult to say at this point time. At this point, I would continue supportive measures in an effort to maintain if not improved her kidney function including maintain her mean arterial pressure with pressor therapy, IV fluid resuscitation, and follow the trend of her repeat labs, urine output...etc. Hopefully her kidney function will continue to improve with current interventions. For further evaluation of her acute renal failure, I will check urine electrolytes Unasyn a fills in follow the trend of her repeat labs and urine output as mentioned above. Her renal ultrasound demonstrates one kidney that is somewhat small in size/ eight but this could be a Mrs. interpretation given shot when that was present on the ultrasound imaging itself. I will continue to follow patient with you while she remains hospitalized make further recommendations based on her hospital course. Thank you for allowing the to participate in the care of this patient. History of Present Illness Reason for Consult Consult date: 05/22/19 Reason for consult: acute renal failure Chief Complaint Chief complaint: Septic shock/blateral lower extremity ulcers/hyper History of Present Illness Narrative: All the information I have obtained is from review of the electronic medical record and discussion with the medical team involved in the patient's care as she is unable to provide me with any history due to her current clinical status (intubated and sedated). The patient is a 58 year old female with a past medical history as outlined below who presented to [facility] ER yesterday with altered mental status. Per EMS and her nursing facility records, apparently she has been steadily become less responsive in the last few days. EMS was called because of this change in her status and she noted to progressively dropping blood sugars by the time of her arrival to the ER. Further workup and evaluation in the emergency room demonstrated the patient to be quite hypotensive and her exam was significant for bilateral lower extremity wounds with purulence drainage and malodorous smell despite dressings that were in place. Despite aggressive IV fluid resuscitation she remained hypotensive and a femoral central line was placed and she was started on vasopressor therapy. As her mental status continued to decline, she was intubated placed on mechanical ventilation as well. Blood work done in the emergency room demonstrated elevated white blood cell count, relative anemia, a left shift/bandemia, elevated INR, hyperkalemia, and elevated BUN and creatinine consistent with acute renal failure. H
[2019-05-22 15:11] LABS: Reflex Lactic Acid Yes or No Add Lactic
[2019-05-22 16:17] LABS: Glucose Point of Care 124 (65-105)
--- NOTE | 2019-05-22 16:21 | PM.IMPN ---
Progress Note: A&P Assessment and Plan (1) Septic shock: Code(s): A41.9 - Sepsis, unspecified organism; R65.21 - Severe sepsis with septic shock Status: Acute Assessment and Plan: Blood cultures are pending. Wound care consult has been placed. Patient is on vancomycin and Zosyn. Continue to monitor lactic acid levels. Continue with IV fluids. Patient is being supported by vasopressors. This includes vasopressin and Levophed. Patient is intubated she is on a ventilator. Ventilator settings per maid supervisor. (2) Infected stasis ulcer of lower extremity: Code(s): I83.209 - Varicose veins of unspecified lower extremity with both ulcer of unspecified site and inflammation; L97.909 - Non-pressure chronic ulcer of unspecified part of unspecified lower leg with unspecified severity Status: Acute Assessment and Plan: Patient has chronic wound ulcers and was admitted to the [facility] in the past with necrotizing fasciitus . Surgery feels no evidence of that now.Contiue Vanc and zosyn (3) Acute renal failure: Code(s): N17.9 - Acute kidney failure, unspecified Status: Acute Assessment and Plan: I believe this most likely is chronic the last time she was here her creatinine was 5.3 and is 5.5 today. We will get nephrology consulted as well. continue hydration and observe (4) Hyperkalemia: Code(s): E87.5 - Hyperkalemia Status: Acute Assessment and Plan: Patient was given a concoction in the emergency room will repeat BMP. Not sure if this is related to dehydration her sepsis or the renal failure. (5) Hypoglycemia: Code(s): E16.2 - Hypoglycemia, unspecified Status: Acute Assessment and Plan: Continue to monitor. (6) Anemia: Code(s): D64.9 - Anemia, unspecified Status: Acute Assessment and Plan: This is chronic please continue to monitor. (7) Chronic ulcer of leg: Code(s): L97.909 - Non-pressure chronic ulcer of unspecified part of unspecified lower leg with unspecified severity Status: Chronic Assessment and Plan: Continue local care. Surgery may debrided later (8) Elevated troponin: Code(s): R79.89 - Other specified abnormal findings of blood chemistry Status: Acute Assessment and Plan: Continue to monitor. Elevation thought secondary to sepsis and no true ischemic event. Subjective Date/time seen: 05/22/19 16:21 Objective Data Vital Signs Vital Signs: Vital Signs - 24 hr 05/21/19 16:30 05/21/19 16:45 05/21/19 17:00 Temperature 34.9 C L Pulse Rate 96 94 95 Respiratory Rate 24 H 24 H 30 H Blood Pressure 96/57 L 97/54 L 97/54 L Pulse Oximetry 99 99 95 05/21/19 18:00 05/21/19 20:00 05/21/19 21:06 Temperature 35.5 C L Pulse Rate 88 89 90 Respiratory Rate 28 H 29 H Blood Pressure 91/69 L 102/84 Pulse Oximetry 92 100 100 05/21/19 22:00 05/21/19 23:27 05/21/19 23:40 Temperature 35.5 C L 36.1 C L Pulse Rate 92 91 92 Respiratory Rate 29 H 27 H Blood Pressure 164/108 H 104/68 Pulse Oximetry 100 92 92 05/22/19 00:00 05/22/19 01:07 05/22/19 01:55 Temperature Pulse Rate 92 94 95 Respiratory Rate 29 H Blood Pressure 143/54 H Pulse Oximetry 96 98 05/22/19 04:00 05/22/19 05:02 05/22/19 05:36 Temperature 36.1 C L Pulse Rate 107 H 113 H 123 H Respiratory Rate 30 H 30 H Blood Pressure 111/77 125/80 Pulse Oximetry 98 100 98 05/22/19 08:00 05/22/19 08:15 05/22/19 10:00 Temperature 37.2 C 36.6 C Pulse Rate 106 H 101 H 113 H Respiratory Rate 26 H 30 H Blood Pressure 95/69 L 139/84 Pulse Oximetry 98 96 100 05/22/19 11:41 05/22/19 12:00 05/22/19 13:58 Temperature Pulse Rate 140 H 140 H 110 H Respiratory Rate 30 H Blood Pressure 138/89 Pulse Oximetry 05/22/19 14:00 05/22/19 14:11 05/22/19 14:28 Temperature Pulse Rate 120 H 108 H 120 H Respiratory Rate 26 H 27 H 20 Blood Pressure 115/75
[2019-05-22] MEDS: VASOPRESSIN INJ 100 UNITS in DEXTROSE 5% 95 ML IV CONT (18:03)
[2019-05-22 20:17] LABS: Glucose Point of Care 133 (65-105)
[2019-05-22] MEDS: SODIUM BICARBONATE 8.4% 150 MEQ in DEXTROSE 5% 1,000 ML 950 ML 70 MEQ IV CONT (22:46)
[2019-05-23] VITALS (36 sets, daily range): BP systolic 98–125; BP diastolic 50–74; PULSE 94–116; RESP 20–26; TEMP 33.6–37.3
[2019-05-23] MEDS: ALTEPLASE 2 MG VIAL (CATHFLO) IV PUSH ×2 (00:10→02:15)
[2019-05-23] MEDS: NOREPINEPHRINE 8 MG/D5W 250 ML 8 MG/250 ML BAG 18.8 MG IV CONT (00:15)
[2019-05-23 00:40] LABS: Glucose Point of Care 116 (65-105)
[2019-05-23] MEDS: LEVALBUTEROL NEB 1.25 MG/3 ML 0.63 MG INHALATION ×4 (02:07→19:47)
[2019-05-23] MEDS: IPRATROPIUM BR 0.02% INH SOLN 0.5 MG/2.5 ML VIAL INHALATION ×4 (02:07→19:46)
[2019-05-23 04:41] LABS: Base Excess ABG -19.8 mEq/l (+/-2.0); Carboxyhemoglobin 0.3 % THb (0-2.0); Fractional Inspired Oxygen 40 %; HCO3 ABG 7.2 mEq/l (22.0-26.0); Methemoglobin ABG 0.4 %THb (0-1.5); Oxygen Content ABG 11.9 %vol (16.0-22.0); Oxygen Saturation ABG 98.4 % (95.0-100.0); Oxyhemoglobin 96.7 % THb (90.0-100.0); PO2 ABG 149.4 mmHg (80.0-100.0); PO2 FiO2 Ratio Arterial Blood 3.73 %; Reduced Hemoglobin 2.6 %THb (0-5.0); Total Hemoglobin 8.5 g/dL (12.0-18.0)
[2019-05-23 04:44] LABS: Device VENTILATOR; PCO2 ABG 20.7 mmHg (35.0-45.0); Site Drawn ARTLINE; pH ABG 7.157 (7.350-7.450)
[2019-05-23 04:45] LABS: Arterial Blood Gas Minute Volume 7 LPM; Arterial Blood Gas PEEP 5 cmH2O; Arterial Blood Gas Vent Mode CMV; Arterial Blood Gas Ventilator rate 14 /MIN
[2019-05-23 04:46] LABS: Arterial Blood Gas Tidal Volume 330 ml
[2019-05-23] MEDS: HYDROCORTISONE SODIUM SUCCINATE 100 MG/2 ML VIAL IV PUSH ×3 (05:18→21:17)
[2019-05-23] MEDS: SODIUM BICARBONATE 8.4% 50 MEQ/50 ML VIAL 100 MEQ IV PUSH (06:18)
[2019-05-23 06:21] LABS: Vancomycin Random 9.6 ug/mL (10-20)
[2019-05-23 06:58] LABS: Hematocrit 21.5 % (37.0-47.0); Mean Corpuscular HGB Conc 29.8 g/dl (32-36); Mean Corpuscular Hemoglobin 26.9 pg (26-34); Mean Corpuscular Volume 90.3 fl (80-100); Mean Platelet Volume 9.7 fl (7.4-10.4); Platelet Count Result 104 k/mm3 (150-375); Red Blood Count 2.38 M/mm3 (4.2-5.4); Red Cell Distribution Width 14.5 % (11.5-14.5); White Blood Count 36.2 K/mm3 (4.5-10.0)
[2019-05-23 07:02] LABS: Hemoglobin 6.4 g/dL (12.0-15.0)
[2019-05-23 07:47] LABS: Albumin Level 1.2 g/dL (3.5-5.1); Alkaline Phosphatase 244 U/L (38-126); Bilirubin,Total 1.1 mg/dL (0.2-1.3); Blood Urea Nitrogen 55 mg/dL (7-17); Calcium 4.6 mg/dL (8.4-10.2); Carbon Dioxide 11 mmol/L (22-30); Chloride 85 mmol/L (98-107); Estimated CRCL calculation 10 ml/min; Estimated Glomerular Filt Rate 11; Glucose 109 mg/dL (65-105); Magnesium 2.4 mg/dL (1.6-2.3); Potassium 6.3 mmol/L (3.4-5.0); Sodium 123 mmol/L (137-145)
[2019-05-23 08:06] LABS: Alanine Aminotransferase 1831 U/L (4-35)
[2019-05-23 08:07] LABS: Lactic Acid 19.1 mmol/L (0.7-2.1)
[2019-05-23 08:14] LABS: Aspartate Amino Transferase 6343 U/L (14-36)
[2019-05-23 08:42] LABS: Alveolar/Arterial O2 Gradient 120.5 mmHg; Base Excess ABG -18.8 mEq/l (+/-2.0); Fractional Inspired Oxygen 40 %; HCO3 ABG 7.9 mEq/l (22.0-26.0); Oxygen Content ABG 13.9 %vol (16.0-22.0); Oxygen Saturation ABG 98.2 % (95.0-100.0); Oxyhemoglobin 96.5 % THb (90.0-100.0); PO2 ABG 139.3 mmHg (80.0-100.0); PO2 FiO2 Ratio Arterial Blood 3.48 %
[2019-05-23 08:44] LABS: Arterial Blood Gas Vent Mode CMV; Arterial Blood Gas Ventilator rate 18 /MIN; Device VENTILATOR; PCO2 ABG 22.1 mmHg (35.0-45.0); Site Drawn ARTLINE; pH ABG 7.172 (7.350-7.450)
[2019-05-23 08:45] LABS: Arterial Blood Gas PEEP 5 cmH2O; Arterial Blood Gas Tidal Volume 330 ml
[2019-05-23] MEDS: ALBUTEROL SULFATE NEB 2.5 MG/0.5 ML INH 15 MG INHALATION (08:59)
[2019-05-23] MEDS: SODIUM BICARBONATE 8.4% 50 MEQ/50 ML VIAL IV PUSH (09:06)
[2019-05-23] MEDS: PANTOPRAZOLE SODIUM IV 40 MG VIAL IV PUSH (09:07)
[2019-05-23] MEDS: DEXTROSE 50% 25 GM/50 ML SYRINGE IV PUSH (09:07)
[2019-05-23] MEDS: MIDAZOLAM HCL 50 MG in DEXTROSE 5% 90 ML IV CONT (09:11)
[2019-05-23] MEDS: NOREPINEPHRINE 8 MG/D5W 250 ML 8 MG/250 ML BAG 35.6 MG IV CONT (09:25)
--- NOTE | 2019-05-23 09:46 | PM.PNNEP ---
Progress Note: A&P Assessment and Plan (1) Acute renal failure: Code(s): N17.9 - Acute kidney failure, unspecified Status: Acute Assessment and Plan: due to multifactorial ATN despite initial improvement, renal function has worsened as noted by AM labs now with worsening acidosis, hyperkalemia, and relative anuria the next step would be renal replacement therapy/dialysis (see discussion below) (2) Hyperkalemia: Code(s): E87.5 - Hyperkalemia Status: Acute Assessment and Plan: due to ongoing worsening condition/renal function medical management for treatment follow repeat testing (3) Septic shock: Code(s): A41.9 - Sepsis, unspecified organism; R65.21 - Severe sepsis with septic shock Status: Acute Assessment and Plan: presumed secondary to bacteremia and wound infection - blood cultures with GPC in clusters - wound cultures with GPCin clusters and gram negative bacilli remains on vasopressin and Levophed remains on broad spectrum antibiotics as well as stress dose steroids lactic acid has significantly worsened - on bicarbconate IVFs/infusion to compensate (4) Acute respiratory failure: Code(s): J96.00 - Acute respiratory failure, unspecified whether with hypoxia or hypercapnia Status: Acute Assessment and Plan: due to critical illness. shock, and acidosis on full mechanical ventilator support (5) Chronic ulcer of leg: Code(s): L97.909 - Non-pressure chronic ulcer of unspecified part of unspecified lower leg with unspecified severity Status: Chronic Assessment and Plan: apparently somewhat of a chronic issue wound cultures noted on antibiotics local wound care Discussed case with Dr. Ivy -- although renal replacement therapy/dialysis is an option, her hemodynamic instability with make regular intermittend dialyisis quite challenging and she may not even tolerate the procedure itself. CRRT is an option but she would require transfer to another facility and I still question if she would event tolerated that intervention Furthermore, renal replacement may not change her manager terminal prognosis given her multi-system organ failure. Dr. Ivy has already discussed the case with family -- code status changed to DNR; will continue supportive therapy for her electrolyte abnromalities, acidosis, anemia as family may withdraw support if she continues to deteriorate. Will continue to follow. Subjective Date/time seen: 05/23/19 09:46 Unfortunately, the patient has deteriorated significantly in the last 24 hours -- her pressor requirements have increased and her urine output has declined significantly in associated with worsening leukocytosis, anemia, lactic acidosis and hyperkalememia; remains on full mechanial ventilator support. Exam Narrative: Exam Narrative: General: ill appearing female in NAD; intubated and sedated Heart: normal S1 and S2; no rub Lungs: diminished with scattered rhonchi Abdomen: soft, nontender, nondistended, positive bowel sounds Extremities: no clubbing but cyanosis noted in fingers; 1+ edema Skin: intact Objective Data Vital Signs Vital Signs: Vital Signs Temp Pulse Resp BP Pulse Ox 05/23/19 08:24 98 20 05/23/19 08:00 36.4 C L 99 26 H 123/63 05/23/19 06:00 103 H 23 H 125/69 05/23/19 04:48 109 H 05/23/19 04:00 37.2 C 111 H 22 H 98/62 L 05/23/19 02:21 113 H 24 H 05/23/19 02:10 115 H 24 H 05/23/19 02:00 114 H 25 H 102/65 05/23/19 01:55 114 H 05/23/19 00:00 37.3 C 116 H 25 H 114/74 05/22/19 23:03 118 H 05/22/19 22:00 118 H 24 H 134/82 05/22/19 20:15 120 H 25 H 05/22/19 20:02 121 H 25 H 05/22/19 20:00 37.1 C 122 H 25 H 123/81 05/22/19 19:50 121 H 05/22/19 18:00 120 H 26 H 128/84 91 05/22/19 17:09 134 H 97 05/22/19 16:00 37.0 C 119 H 26 H 119/80 05/21
--- NOTE | 2019-05-23 10:51 | WPDINTPN ---
Progress Note: A&P Assessment and Plan (1) Septic shock: Code(s): A41.9 - Sepsis, unspecified organism; R65.21 - Severe sepsis with septic shock Status: Acute Assessment and Plan: septic shock most likely related to infected chronic wound, bacteremia - patient on vasopressin and Levophed, will target mean arterial pressures > 70 mmHg for adequate end organ perfusion - continue stress dose steroids, worsening WBC count - continue vancomycin and Zosyn - blood cultures growing gram-positive cocci in clusters 2/2 bottles - wound cultures growing gram-positive cocci in clusters and Gram- negative bacilli - lactic acid significantly elevated this morning - on bicarb infusion - arterial line was placed on 05/21 (2) Encephalopathy: Code(s): G93.40 - Encephalopathy, unspecified Status: Acute Assessment and Plan: multifactorial, toxic metabolic encephalopathy related to severe metabolic acidosis due to septic shock, acute kidney injury, shock liver - ammonia levels within normal limits - unable to obtain CT scan of the head due to patient being on stable - continue treating underlying causes (3) Acute respiratory failure: Code(s): J96.00 - Acute respiratory failure, unspecified whether with hypoxia or hypercapnia Status: Acute Assessment and Plan: most likely related to metabolic acidosis, initial pH was 6.7 - patient on full mechanical ventilatory support, 40% FiO2 - chest x-ray and ABGs reviewed, ABG showed metabolic acidosis, ventilator adjusted - continue bronchodilators - continue antibiotics as above (4) Acute renal failure: Code(s): N17.9 - Acute kidney failure, unspecified Status: Acute Assessment and Plan: acute kidney injury most likely related to septic shock - adequately fluid-resuscitated - continue maintenance IV fluids with sodium bicarb in D5 - will maintain mean arterial pressure > 70 mmHg for adequate renal perfusion - awake nephrotoxic medications - worsening metabolic acidosis, lactic acid up to 19.1 this morning (5) Hyperkalemia: Code(s): E87.5 - Hyperkalemia Status: Acute Assessment and Plan: potassium of 6.3 this morning, treat with bicarb, insulin and D50, albuterol, calcium (6) Hypoglycemia: Code(s): E16.2 - Hypoglycemia, unspecified Status: Acute Assessment and Plan: patient on D10 at 30 mL/hour, blood sugars have been stable - Accu-Cheks with hypoglycemia protocol (7) Chronic ulcer of leg: Code(s): L97.909 - Non-pressure chronic ulcer of unspecified part of unspecified lower leg with unspecified severity Status: Chronic Assessment and Plan: patient has a history of chronic leg ulcers. According the records and her significant other she has been having these ulcers for the last 3-4 years - was in [facility] in September 2017 possible necrotizing fasciitis, will obtain medical records from [facility] - appreciate surgical evaluation and recommendations - wound Care has been consulted (8) Elevated troponin: Code(s): R79.89 - Other specified abnormal findings of blood chemistry Status: Acute Assessment and Plan: elevated troponin likely related to septic shock and ischemic demand. Likely type 2 infarct - no ST-T changes on the EKG (9) Elevated LFTs: Code(s): R79.89 - Other specified abnormal findings of blood chemistry Status: Acute Assessment and Plan: likely related to shock liver, will maintain higher mean arterial pressures for adequate end organ perfusion (10) DVT prophylaxis: Code(s): Z29.9 - Encounter for prophylactic measures, unspecified Status: Acute Assessment and Plan: DVT prophylaxis: hold Lovenox due to thrombocytopenia Stress ulcer prophylaxis: Protonix Additional Plan discussed with sonGabriele and significant other, Sergio and briana
[2019-05-23] MEDS: CALCIUM GLUCONATE 1,000 MG/10 ML VIAL 1000 MG IV PUSH (10:55)
[2019-05-23] MEDS: SOD HYPOCHLORITE 1/4 STRENGTH 473 ML 1 APPLIC TOPICAL ×2 (12:53→20:10)
--- NOTE | 2019-05-23 13:08 | PM.PNGS ---
Progress Note: A&P Assessment and Plan (1) Infected stasis ulcer of lower extremity: Code(s): I83.209 - Varicose veins of unspecified lower extremity with both ulcer of unspecified site and inflammation; L97.909 - Non-pressure chronic ulcer of unspecified part of unspecified lower leg with unspecified severity Status: Acute Assessment and Plan: Patient showing worsening signs of septic shock with elevated lactate level and peripheral vasoconstriction. Continuing local wound care with Dakin's solution. Patient now a DNR, and has a very poor overall prognosis. Will not plan any debridement at this time due to unlikely ability to survive. (2) Septic shock: Code(s): A41.9 - Sepsis, unspecified organism; R65.21 - Severe sepsis with septic shock Status: Acute Subjective Subjective Date/Time Seen: 05/23/19 13:08 Patient remains unresponsive on ventilator. Lactate level rising, and showing signs of end-organ failure. She has currently been made a DNR. Exam GI: Inspection: distended GI Palp: Yes Firmness to palpation present (GI) Auscultation: absent bowel sounds Extrem: Other: Bilateral lower extremity wounds with necrotic epidermis and dermis. Dressings in place. No deep abscess suspected. Objective Data Vital Signs Vital Signs: Vital Signs - 24 hr 05/22/19 13:58 05/22/19 14:00 05/22/19 14:11 Temperature Pulse Rate 110 H 120 H 108 H Respiratory Rate 26 H 27 H Blood Pressure 115/75 Pulse Oximetry 05/22/19 14:28 05/22/19 16:00 05/22/19 17:09 Temperature 37.0 C Pulse Rate 120 H 119 H 134 H Respiratory Rate 20 26 H Blood Pressure 119/80 Pulse Oximetry 97 05/22/19 18:00 05/22/19 19:50 05/22/19 20:00 Temperature 37.1 C Pulse Rate 120 H 121 H 122 H Respiratory Rate 26 H 25 H Blood Pressure 128/84 123/81 Pulse Oximetry 91 05/22/19 20:02 05/22/19 20:15 05/22/19 22:00 Temperature Pulse Rate 121 H 120 H 118 H Respiratory Rate 25 H 25 H 24 H Blood Pressure 134/82 Pulse Oximetry 05/22/19 23:03 05/23/19 00:00 05/23/19 01:55 Temperature 37.3 C Pulse Rate 118 H 116 H 114 H Respiratory Rate 25 H Blood Pressure 114/74 Pulse Oximetry 05/23/19 02:00 05/23/19 02:10 05/23/19 02:21 Temperature Pulse Rate 114 H 115 H 113 H Respiratory Rate 25 H 24 H 24 H Blood Pressure 102/65 Pulse Oximetry 05/23/19 04:00 05/23/19 04:48 05/23/19 06:00 Temperature 37.2 C Pulse Rate 111 H 109 H 103 H Respiratory Rate 22 H 23 H Blood Pressure 98/62 L 125/69 Pulse Oximetry 05/23/19 08:00 05/23/19 08:24 05/23/19 10:00 Temperature 36.4 C L Pulse Rate 99 98 102 H Respiratory Rate 26 H 20 26 H Blood Pressure 123/63 104/50 L Pulse Oximetry 05/23/19 11:13 05/23/19 11:29 05/23/19 12:00 Temperature 36.1 C L 36.1 C L 36.0 C L Pulse Rate 105 H 104 H 102 H Respiratory Rate 26 H 26 H 26 H Blood Pressure 107/58 L 105/59 L 112/63 Pulse Oximetry 05/23/19 12:15 Temperature Pulse Rate 101 H Respiratory Rate Blood Pressure Pulse Oximetry Intake/Output Intake/Output: Intake & Output 05/20/19 05/21/19 05/22/19 05/23/19 23:59 23:59 23:59 23:59 Intake Total 4600 5058 1665 Output Total 550 950 125 Balance 4050 4108 1540 Meds/Results Medications: Active Medications Generic Name Dose Route Start Last Admin Trade Name Freq PRN Reason Stop Dose Admin Alteplase, Recombinant 2 mg 05/22/19 22:33 05/23/19 02:15 Cathflo Activase IV PUSH 2 mg ONCE PRN Administration Line Occlusion Dextrose 12.5 gm 05/22/19 08:41 Dextrose 50% Syringe IV PUSH PRN PRN Hypoglycemia Protocol Enoxaparin Sodium 30 mg 05/22/19 10:30 05/22/19 10:34 Lovenox SUB-Q 30 mg DAILY GERMAN Administration Glucagon 1 mg 05/22/19 08:41 Glucagon For Inj IM PRN PRN Hypoglycemia Protocol Glucose 15 gm 05/22/19 08:41 Glutose 15 PO PRN PRN Hypoglycemia Lucia
[2019-05-23] MEDS: SODIUM BICARBONATE 8.4% 150 MEQ in DEXTROSE 5% 1,000 ML 950 ML 70 MEQ IV CONT (13:20)
[2019-05-23 13:24] LABS: Glucose Point of Care 137 (65-105)
[2019-05-23] MEDS: NOREPINEPHRINE 8 MG/D5W 250 ML 8 MG/250 ML BAG 46.9 MG IV CONT ×2 (15:11→19:56)
--- NOTE | 2019-05-23 16:02 | PM.IMPN ---
Progress Note: A&P Assessment and Plan (1) Septic shock: Code(s): A41.9 - Sepsis, unspecified organism; R65.21 - Severe sepsis with septic shock Status: Acute Assessment and Plan: Blood cultures now growing gram-positive cocci in clusters compatible with Staph sepsis. Wound care consult has been placed. Patient is on vancomycin and Zosyn. Uric acid 19 today!. Continue with IV fluids. Patient is being supported by vasopressors. This includes vasopressin and Levophed. Patient is intubated she is on a ventilator. Ventilator settings per slubber tender. (2) Infected stasis ulcer of lower extremity: Code(s): I83.209 - Varicose veins of unspecified lower extremity with both ulcer of unspecified site and inflammation; L97.909 - Non-pressure chronic ulcer of unspecified part of unspecified lower leg with unspecified severity Status: Acute Assessment and Plan: Patient has chronic wound ulcers and was admitted to the [facility] in the past with necrotizing fasciitus . Surgery feels no evidence of that now.Contiue Vanc and zosyn (3) Acute renal failure: Code(s): N17.9 - Acute kidney failure, unspecified Status: Acute Assessment and Plan: I believe this most likely is chronic the last time she was here her creatinine was 5.3 and still 4.9 today. continue hydration and observe (4) Hyperkalemia: Code(s): E87.5 - Hyperkalemia Status: Acute Assessment and Plan: . Not sure if this is related to dehydration, her sepsis or the renal failure. At least partially now related to it is persistent acidosis. Continue to monitor and treat (5) Hypoglycemia: Code(s): E16.2 - Hypoglycemia, unspecified Status: Acute Assessment and Plan: Continue to monitor. (6) Anemia: Code(s): D64.9 - Anemia, unspecified Status: Acute Assessment and Plan: This is chronic please continue to monitor. (7) Chronic ulcer of leg: Code(s): L97.909 - Non-pressure chronic ulcer of unspecified part of unspecified lower leg with unspecified severity Status: Chronic Assessment and Plan: Continue local care. Surgery may debrided later as above (8) Elevated troponin: Code(s): R79.89 - Other specified abnormal findings of blood chemistry Status: Acute Assessment and Plan: Continue to monitor. Elevation thought secondary to sepsis and no true ischemic event. Subjective Date/time seen: 05/23/19 16:02 Interval history: Date of visit 05/22. 50-year-old black female with chronic stasis ulcers admitted with infection and same complicated by sepsis severe lactic acidosis, and respiratory failure with acute renal failure.. Remains on the vent sedated. Blood cultures now growing gram-positive cocci in clusters Exam Narrative: Exam Narrative: Blood pressure 114/66 pulse 102 saturating 91% with FiO2 of 30% and 5 peep, remains 2 different pressor agents Lungs are clear CV tachy Abdomen benign Extremities marked changes there still wrapped and dressings are not removed Neuro sedated Objective Data Vital Signs Vital Signs: Vital Signs - 24 hr 05/22/19 17:09 05/22/19 18:00 05/22/19 19:50 Temperature Pulse Rate 134 H 120 H 121 H Respiratory Rate 26 H Blood Pressure 128/84 Pulse Oximetry 97 91 05/22/19 20:00 05/22/19 20:02 05/22/19 20:15 Temperature 37.1 C Pulse Rate 122 H 121 H 120 H Respiratory Rate 25 H 25 H 25 H Blood Pressure 123/81 Pulse Oximetry 05/22/19 22:00 05/22/19 23:03 05/23/19 00:00 Temperature 37.3 C Pulse Rate 118 H 118 H 116 H Respiratory Rate 24 H 25 H Blood Pressure 134/82 114/74 Pulse Oximetry 05/23/19 01:55 05/23/19 02:00 05/23/19 02:10 Temperature Pulse Rate 114 H 114 H 115 H Respiratory Rate 25 H 24 H Blood Pressure 102/65 Pulse Oximetry 05/23/19 02:21 05/23/19 04:00 05/23/19 04:48 Temperature 37.2 C Pulse Rate 113 H 111 H 109 H R
[2019-05-23 17:25] LABS: Glucose Point of Care 138 (65-105)
[2019-05-23] MEDS: DEXTROSE 10% 1,000 ML 30 ML IV CONT (19:55)
--- NOTE | 2019-05-23 22:00 | PC.NURSE ---
Patient blood sugar 226. Dr. Tolbert notified. Stop D10 drip, check at 2400
[2019-05-23 22:02] LABS: Glucose Point of Care 226 (65-105)
[2019-05-24] VITALS: BP 94/65; PULSE 100; RESP 24; TEMP 36.5; O2SAT 95
[2019-05-24 00:09] LABS: Glucose Point of Care 195 (65-105)
--- NOTE | 2019-05-24 00:22 | PC.NURSE ---
Dr. Tolbert notified of blood pressure 90/63. Levophed at 30mcg. Resume Vasopressin.
[2019-05-24] MEDS: VASOPRESSIN INJ 100 UNITS in DEXTROSE 5% 95 ML IV CONT (00:28)
[2019-05-24] MEDS: NOREPINEPHRINE 8 MG/D5W 250 ML 8 MG/250 ML BAG 56.3 MG IV CONT (00:38)
[2019-05-24 01:10] LABS: Base Excess ABG -17.5 mEq/l (+/-2.0); HCO3 ABG 7.6 mEq/l (22.0-26.0); PCO2 ABG 17.6 mmHg (35.0-45.0); PO2 ABG 102.2 mmHg (80.0-100.0); Total Hemoglobin 10.7 g/dL (12.0-18.0); pH ABG 7.253 (7.350-7.450)
[2019-05-24 01:11] LABS: Carboxyhemoglobin 0.3 % THb (0-2.0); Methemoglobin ABG 0.3 %THb (0-1.5); Oxygen Content ABG 14.5 %vol (16.0-22.0); Oxyhemoglobin 95.3 % THb (90.0-100.0); PO2 FiO2 Ratio Arterial Blood 3.41 %; Reduced Hemoglobin 4.1 %THb (0-5.0)
[2019-05-24 01:12] VITALS: BP 101/76; PULSE 100; RESP 24; TEMP 36.7
[2019-05-24 01:12] LABS: Arterial Blood Gas PEEP 5 cmH2O; Arterial Blood Gas Vent Mode CMV; Arterial Blood Gas Ventilator rate 24 /MIN; Device VENTILATOR; Fractional Inspired Oxygen 30 %; Site Drawn ARTLINE
[2019-05-24 01:13] LABS: Arterial Blood Gas Tidal Volume 330 ml
--- NOTE | 2019-05-24 01:37 | PC.NURSE ---
Dr. Tolbert notified of rhythm change on patient. Dr. Tolbert at beside.
--- NOTE | 2019-05-24 01:39 | ECG_ITS ---
Measurements Intervals [place] Rate: 94 P: 195 OR: 143 QRS: 264 QRSD: 218 T: 46 QT: 476 QTc: 598 Interpretive Statements SINUS OR ECTOPIC ATRIAL RHYTHM WITH MARKED FIRST DEGREE AV BLOCK WIDE QRS COMPLEX WITH PEAKED T WAVES- CONSIDER HYPERKALEMIA OR ISCHEMIA ABNORMAL ECG Electronically Signed On 05-24-2019 10:31:21 CDT by Juan Benites D.O.
[2019-05-24] MEDS: SODIUM BICARBONATE 8.4% 50 MEQ/50 ML VIAL IV PUSH (01:51)
[2019-05-24] MEDS: CALCIUM CHLORIDE 1,000 MG/10 ML SYRINGE 1000 MG IV PUSH (01:51)
[2019-05-24 02:19] LABS: Albumin Level 1.1 g/dL (3.5-5.1); Alkaline Phosphatase 381 U/L (38-126); Bilirubin,Total 1.7 mg/dL (0.2-1.3); Blood Urea Nitrogen 50 mg/dL (7-17); Calcium 4.5 mg/dL (8.4-10.2); Carbon Dioxide 7 mmol/L (22-30); Chloride 79 mmol/L (98-107); Glucose 212 mg/dL (65-105); Magnesium 2.6 mg/dL (1.6-2.3); Sodium 114 mmol/L (137-145)
[2019-05-24 02:21] LABS: Phosphorus 16.9 mg/dL (2.5-4.5)
--- NOTE | 2019-05-24 02:23 | PM.EVENT ---
Event Note Event Note Event Note: Called by nursing staff to assess this patient as she had a change in heart rhythm. The patient now had a wide QRS complex on her telemetry. EKG was obtained and labs were drawn for BMP, magnesium and phosphorus. On my arrival to bedside the patient is intubated and sedated. Her blood pressure is low and was maxed out on Levophed. The patient was started back on vasopressin and ABG was obtained to assess her acid-base status. 1 amp of calcium gluconate IVP was given and I ordered 1 amp of Sodium bicarbonate. Before the sodium bicarbonate could be given the patient went into asystole. The patient was a DNR code status. was pronounced at 2 am. The patient's family was notified. Serum potassium came back at 8.0 mmol/L.
[2019-05-24 02:32] LABS: Alanine Aminotransferase 2804 U/L (4-35)
[2019-05-24 02:38] LABS: Estimated CRCL calculation 10 ml/min; Estimated Glomerular Filt Rate 11
[2019-05-24 02:57] LABS: Aspartate Amino Transferase > 7500 U/L (14-36)
--- NOTE | 2019-05-24 16:12 | PM.DDS ---
Discharge Sum: Prov Provider Primary care physician: Manuel Darby MD Admitting provider: Deborah Buchanan MD Consults: 05/21/19 Consult to Physician Routine Comment: EXCHANGE NOTIFID OF CONSULT Consulting Provider: Nic Simpson intelligence officer/MD group to consult: dr simpson Reason for consultation: renal failure Has provider been notified: Yes 05/21/19 16:03 Consult to Physician Routine Comment: Consulting Provider: Rubén Ivy Reason for consultation: ICU Has provider been notified: Yes Wound/ET Consult Routine Reason for Consult:: BLE Ulcers 05/22/19 10:06 Consult to Physician Routine Comment: SPOKE W/ DR. BENAVIDES/WILL CONT. TO GET THROUGH W/EXC Consulting Provider: Jas Romo intelligence officer/MD group to consult: SURGERY Reason for consultation: lower extremity wounds Has provider been notified: Yes 05/23/19 08:34 Consult to Physician Routine Comment: 2ND NOTICE Consulting Provider: Jas Room intelligence officer/MD group to consult: SURGERY Reason for consultation: ischemic bowel, elevated lactic Has provider been notified: Yes Discharge Sum: Diag Contributing Factors (1) Septic shock: (2) Infected stasis ulcer of lower extremity: (3) Acute renal failure: (4) Hyperkalemia: (5) Hypoglycemia: (6) Anemia: (7) Chronic ulcer of leg: (8) Elevated troponin: Discharge Sum: Summary Date and Time Date of admission: 05/21/19 15:59 Summary Details: 50-year-old black female admitted with sepsis, acute respiratory failure, and acute renal failure. Etiology of sepsis thought to be ulcers and cellulitis of her legs. Cultures of her legs grew Pseudomonas and Staph aureus and blood cultures the day of were growing staph aureus. Patient had been placed on IV vancomycin, IV Zosyn, and dual pressor agents to try to maintain pressure. Failure sleep fluid resuscitated. A.m. on the her lactic acid with still 19 with a pH of 7.1 despite bicarb infusion and treatment of her underlying infection. Stereo Compiler talk to her family and they did request a DNR and comfort care along with her scheduled antibiotics. Despite this aggressive treatment she early a.m. on the . No no autopsy requested. Cause of Staph aureus sepsis with acute renal and respiratory failure Additional Data Attending physician: Deborah Buchanan MD
== END 2019-05-24 02:00 | disposition expired | DRG 720 ==
LOC: ANHED 16:03 → ANHICU 16:15
PROVIDERS: Family Medicine; Internal Medicine; Nurse Practitioner; Admitting Provider Family Medicine; Emergency Provider Emergency Medicine; PCP Family Medicine; Visit Provider Family Medicine
DX: A41.9 Sepsis, unspecified organism (principal); J96.00 Acute respiratory failure, unspecified whether with hypoxia or hypercapnia; R65.21 Severe sepsis with septic shock; I83.218 Varicose veins of right lower extremity with both ulcer of other part of lower extremity and inflammation; I83.228 Varicose veins of left lower extremity with both ulcer of other part of lower extremity and inflammation; L97.819 Non-pressure chronic ulcer of other part of right lower leg with unspecified severity; L97.829 Non-pressure chronic ulcer of other part of left lower leg with unspecified severity; N17.9 Acute kidney failure, unspecified; E87.5 Hyperkalemia; E86.0 Dehydration; E16.2 Hypoglycemia, unspecified; D64.9 Anemia, unspecified; E87.2 Acidosis; K72.00 Acute and subacute hepatic failure without coma; G92 Toxic encephalopathy; Z66 Do not resuscitate
CPT/HCPCS: 31500; 36415; 36430; 36556; 36600; 71045; 73590; 76775; 80053; 80202; 80307; 81001; 82375; 82550; 82805; 83050; 83605; 83735; 83880; 84100; 84484; 85025; 85027; 85610; 85730; 86140; 86850; 86900; 86901; 86923; 87040; 87070; 87077; 87186; 87205; 93005; 94003; 94640; 96365; 96368; 96375; 96376; 99291; A9270; C1751; C9113; J0330; J0610; J1650; J1720; J1815; J2250; J2543; J2704; J2997; J3010; J3370; J7030; J7050; J7060; J7070; J7121; P9016